=== PATIENT | male | born 1985 | race Caucasian/White ===

== ENCOUNTER 2017-05-07 09:43 | Emergency (ER) | payer MEDICAID ==
[~2017-05-07] VITALS: Ht 157.5 cm; Wt 75.0 kg
[2017-05-07] MEDS ORDERED: CYANOCOBALAMIN 1000MCG/ML VIAL IM ONE (11:30)
[2017-05-07] MEDS ORDERED: SODIUM CHLORIDE 0.9% 1,000 ML IV ONE (11:30)
[2017-05-07 11:42] LABS: BASOPHILS % 0.3 % (0.0-2.0); EOSINOPHILS % 0.3 % (0.0-5.0); HEMOGLOBIN. 15.3 g/dL (14.0-18.0); LYMPHOCYTES % 12.5 % (20.0-50.0); MEAN CORPUSCULAR VOLUME 88.2 fL (80.0-94.0); MONOCYTES % 4.7 % (2.0-8.0); NEUTROPHILS % 82.2 % (40.0-76.0); PLATELET 227 x1000/uL (130-400); RED BLOOD CELL COUNT 5.11 mill/uL (4.7-6.1)
[2017-05-07] MEDS ORDERED: MORPHINE SULFATE 2 MG/ML CPJ (NOT FOR IM USE) IV ONE (11:45)
[2017-05-07 11:48] LABS: CHLORIDE 103 mEq/L (98-107)
[2017-05-07 11:50] LABS: INR 1.1; PROTHROMBIN TIME 11.1 sec (9.4-11.6)
[2017-05-07 11:57] LABS: AMYLASE 29 IU/L (25-115); CARBON DIOXIDE 24 mEq/L (21-32); ETHANOL BLOOD 54 mg/dL
[2017-05-07] MEDS ORDERED: ONDANSETRON HCL 4MG/2ML VIAL IV ONE (12:15)
[2017-05-07 13:15] LABS: HEPATITIS B SURFACE ANTIGEN NEGATIVE
[2017-05-07 13:18] VITALS: BP 129/80
[2017-05-07 13:43] LABS: HEPATITIS B CORE AB IGM NEGATIVE
[2017-05-07 13:44] LABS: HEPATITIS A AB IGM NEGATIVE (NEGATIVE)
== END 2017-05-07 18:48 | disposition home or self-care (01) ==
LOC: ER 09:43
DX: K76.0 Fatty (change of) liver, not elsewhere classified (principal); R16.0 Hepatomegaly, not elsewhere classified; F10.129 Alcohol abuse with intoxication, unspecified; F17.200 Nicotine dependence, unspecified, uncomplicated; F12.10 Cannabis abuse, uncomplicated
CPT/HCPCS: 36415; 74176; 80053; 82150; 83036; 83690; 85025; 85610; 85651; 96361; 96372; 96374; 96375; 99285; G0482; J2270; J2405; J3420; J7030; Z7610; 80305; 81003; 86705; 86709; 86803; 87340